=== PATIENT | male | born 1985 | race American Indian/Alaskan Native ===

== ENCOUNTER 2017-07-02 17:38 | Emergency (ER) | payer SELFPAY ==
[2017-07-02 18:25] VITALS: PULSE 89; RESP 20
--- NOTE | 2017-07-02 19:24 | C.PDOC ---
History Of Present Illness Ayse Duran is a 31 year old male, who presents to the emergency department complaining of numbness and tingling sensation in his upper and lower extremities since last night. Patient reports he went out drinking with his friends when he began to develop these symptoms. Patient complaints of gait changes, palpitations, and dizziness with movement. He also notes feeling jittery and never experiencing this before. Patient denies chest pain, shortness of breath, headache, fever, chills, cough, nausea, vomiting, diarrhea , abdominal pain, or other complaints. Time Seen by Provider: 07/02/17 19:06 Chief Complaint (Nursing): Chest Pain History Per: Patient History/Exam Limitations: no limitations Onset/Duration Of Symptoms: Hrs (24) Current Symptoms Are (Timing): Still Present Associated Symptoms: denies: Nausea Modifying Factors: None Exacerbating Factors: Movement (dizziness becomes worse) Alleviating Factors: None Recent travel outside of the [place]: No Past Medical History Reviewed: Historical Data, Nursing Documentation, Vital Signs Vital Signs: Last Vital Signs Temp 98.0 F 07/02/17 18:24 Pulse 89 07/02/17 18:24 Resp 20 07/02/17 18:24 BP 142/85 07/02/17 18:24 Pulse Ox 97 07/02/17 19:30 Family History: States: Unknown Family Hx - Social History Hx Tobacco Use: No Hx Alcohol Use: Yes Hx Substance Use: No - Immunization History Hx Tetanus Toxoid Vaccination: Yes Hx Influenza Vaccination: No Hx Pneumococcal Vaccination: No Review Of Systems Constitutional: Negative for: Fever, Chills Cardiovascular: Positive for: Palpitations. Negative for: Chest Pain Respiratory: Negative for: Cough, Shortness of Breath Gastrointestinal: Negative for: Nausea, Vomiting, Abdominal Pain Genitourinary: Negative for: Dysuria, Frequency Skin: Negative for: Rash Neurological: Positive for: Numbness (numbness and tingling in bilateral arms and legs), Dizziness, Other (gait changes ). Negative for: Change in Speech Psych: Negative for: Anxiety Physical Exam - Physical Exam Appears: Well, Non-toxic, No Acute Distress, Other (anxious) Skin: Normal Color, Warm, Dry Head: Atraumatic, Normacephalic Eye(s): bilateral: Normal Inspection, PERRL, EOMI Neck: Normal ROM Chest: No Deformity, No Tenderness Cardiovascular: Rhythm Regular, No Murmur Respiratory: Normal Breath Sounds Gastrointestinal/Abdominal: Normal Exam, Bowel Sounds (normal ), Soft, No Tenderness, No Distention, No Guarding, No Rebound Extremity: Normal ROM, No Pedal Edema, Capillary Refill (<2 seconds), No Swelling, Other (appears tense ) Extremity: Bilateral: Atraumatic, Normal Color And Temperature, Normal ROM Neurological/Psych: Oriented x3, Normal Speech, Normal Cognition, Normal Sensation ED Course And Treatment - Laboratory Results Result Diagrams: 07/02/17 20:45 07/02/17 20:45 Lab Interpretation: No Acute Changes (but UDS + amphetamines) O2 Sat by Pulse Oximetry: 97 (room air) Pulse Ox Interpretation: Normal Reevaluation Time: 22:37 Reassessment Condition: Improved Medical Decision Making Medical Decision Making: Impression: 31 y/o male with unremarkable physical exam, who appears anxious c/o gait changes due to numbness and tingling sensation in bilateral upper and lower extremities. Plan: -- EKG -- Labs -- Urinalysis -- Reassess and disposition Disposition Counseled Patient/Family Regarding: Studies Performed, Diagnosis, Need For Followup - Disposition Referrals: [facility] [Outside] Disposition: HOME/ ROUTINE Disposition Time: 22:38 Condition: STABLE Forms: [facility] (Mosotho), General Discharge Instructions - Clinical Impression Clinical Impression: Amphetamine adverse reaction - Scribe Statement The provider has reviewed the documentation as recorded by the Scribe Scribe Attestation: Codie Soto MD Scribe Attestation: All medical record entries made by the Scribe were at my direction and personally dictated by me. I have reviewed the chart and agree that the record accurately reflects my personal performance of the history, physical exam, medical decision making, and the department course for this patient. I have also personally directed, reviewed, and agree with the discharge instructions and disposition.
[2017-07-02 20:51] LABS: BASO # 0.1 K/uL (0.0-0.2); BASO % 0.6 % (0.0-2.0); EOS # 0.2 K/uL (0.0-0.7); EOS % 2.6 % (0.0-4.0); HEMOGLOBIN 16.3 g/dL (12.0-18.0); LYMPH # 3.2 K/uL (1.0-4.3); LYMPH % 41.2 % (20.0-40.0); MEAN CELL VOLUME 91.6 fL (80.0-94.0); MEAN CORPUSCULAR HEMOGLOBIN 31.6 pg (27.0-31.0); MEAN CORPUSCULAR HGB CONC 34.5 g/dL (33.0-37.0); MEAN PLATELET VOLUME 8.4 fL (7.2-11.7); MONO # 0.7 K/uL (0.0-0.8); MONO % 9.1 % (0.0-10.0); NEUT # 3.6 K/uL (1.8-7.0); NEUT % 46.5 % (50.0-75.0); NRBC % 0.1 % (0.0-2.0); RBC 5.17 Mil/uL (4.40-5.90); RED CELL DISTRIBUTION WIDTH 12.5 % (11.5-14.5); WHITE BLOOD COUNT 7.8 K/uL (4.8-10.8)
[2017-07-02 21:03] LABS: URINE AMORPHOUS SEDIMENT MODERATE /ul (<OCC); URINE BILIRUBIN NEGATIVE (NEGATIVE); URINE BLOOD NEGATIVE (NEGATIVE); URINE CLARITY Hazy (Clear); URINE COLOR Yellow (YELLOW); URINE GLUCOSE (UA) NORMAL (Normal); URINE LEUKOCYTE ESTERASE NEG Leu/uL (Negative); URINE NITRATE NEGATIVE (NEGATIVE); URINE PROTEIN NEGATIVE (NEGATIVE); URINE UROBILINOGEN NORMAL mg/dL (0.2-1.0)
[2017-07-02 21:04] LABS: CALCIUM 9.7 mg/dl (8.6-10.4); GFR AFRICAN-AMERICAN > 60; GFR NON-AFRICAN AMERICAN > 60
[2017-07-02 21:05] LABS: ALB/GLOB RATIO 1.1 (1.0-2.1); ALBUMIN 4.9 g/dL (3.5-5.0); ALT/SGPT 9 U/L (21-72); AST/SGOT 66 U/L (17-59); BLOOD UREA NITROGEN 7 mg/dL (9-20)
[2017-07-02] MEDS ORDERED: Sodium Chloride 0.9% 1,000 ML IV ONE (21:07)
[2017-07-02 21:33] LABS: BARBITURATES, UR NEGATIVE (NEGATIVE); BENZODIAZEPINES, UR NEGATIVE (NEGATIVE); OPIATES, UR NEGATIVE (NEGATIVE); PHENCYCLIDINE, UR NEGATIVE (NEGATIVE)
[2017-07-02 23:21] VITALS: BP 120/85; TEMP 98.7; O2SAT 99
== END 2017-07-02 22:46 | disposition home or self-care (01) ==
LOC: C.ER 17:38
DX: R20.0 Anesthesia of skin (principal); R00.2 Palpitations; R42 Dizziness and giddiness; T43.625A Adverse effect of amphetamines, initial encounter
CPT/HCPCS: 36415; 80053; 81001; 82550; 83735; 84484; 85025; 99284; G0480

== ENCOUNTER 2017-12-24 07:26 | Emergency (ER) | payer MEDICAID ==
[2017-12-24 07:43] VITALS: BP 114/77; PULSE 68; RESP 16; TEMP 98.5; O2SAT 99
[2017-12-24] MEDS ORDERED: Tdap Vaccine 0.5 ml Vial (10-64 yrs) IM ONE ×2 (07:50→07:59)
[2017-12-24] MEDS ORDERED: Bacitracin 500 Units/gm Oint Foilpak UD ONE (07:54)
[2017-12-24] MEDS ORDERED: Lidocaine 2% MPF (5 ml) Inj ONE (07:54)
[2017-12-24] MEDS ORDERED: LIDOCAINE 2% PF (2ML) INJ STA (08:01)
[2017-12-24] MEDS ORDERED: Bacitracin 500 Units/gm Oint Foilpak UD TOP ONE (08:03)
--- NOTE | 2017-12-24 08:26 | C.PDOC ---
History Of Present Illness 32 year old male presents to ED for evaluation of right forearm laceration sustained after hitting a window this morning. Patient states he struck the window after seeing rat near the area which broke the window glass. Denies change in sensation, or any other complaints at this time. He is not up to date with tetanus vaccination. Time Seen by Provider: 12/24/17 07:27 Chief Complaint (Nursing): Abnormal Skin Integrity History Per: Patient History/Exam Limitations: no limitations Onset/Duration Of Symptoms: Hrs Current Symptoms Are (Timing): Still Present Location Of Injury: Right: Forearm Recent travel outside of the [place]: No Additional History Per: Patient Past Medical History Reviewed: Historical Data, Nursing Documentation, Vital Signs Vital Signs: Last Vital Signs Temp 98.5 F 12/24/17 07:37 Pulse 68 12/24/17 07:37 Resp 16 12/24/17 07:37 BP 114/77 12/24/17 07:37 Pulse Ox 99 12/24/17 10:05 - Medical History PMH: No Chronic Diseases Surgical History: No Surg Hx Family History: States: Unknown Family Hx - Social History Hx Tobacco Use: No Hx Alcohol Use: Yes Hx Substance Use: No - Immunization History Hx Tetanus Toxoid Vaccination: Yes Hx Influenza Vaccination: No Hx Pneumococcal Vaccination: No Review Of Systems Constitutional: Negative for: Fever, Chills Skin: Positive for: Other (laceration to right forearm) Neurological: Negative for: Weakness, Numbness Physical Exam - Physical Exam Appears: Non-toxic, No Acute Distress Skin: Warm, Dry, Other (2.5cm irregular curved laceration to right mid forearm; no laceration to right hand, no active bleeding) Head: Atraumatic, Normacephalic Eye(s): bilateral: Normal Inspection Oral Mucosa: Moist Chest: Symmetrical Extremity: Normal ROM, No Tenderness (no tenderness to right hand), Capillary Refill (less than 2 seconds), No Deformity, No Swelling (no right hand swelling) Pulses: Left Radial: Normal, Right Radial: Normal Neurological/Psych: Oriented x3, Normal Speech, Normal Motor, Normal Sensation ED Course And Treatment O2 Sat by Pulse Oximetry: 99 (RA) Pulse Ox Interpretation: Normal - Other Rad Right forearm X-Ray: Interpreted by Me, Viewed By Me Interpretation: No acute fracture or dislocation. (+) Foreign body Laceration - Laceration Repair right forearm Wound Length (In cm): 2.5 Description Of Wound: Irregular Wound Cleansed With: Sterile Saline Anesthesia: Lidocaine 1% Wound Examination: Irrigated With Saline, Foreign Material Removed Manually Wound Closure: Suture (3) Suture Technique And Material Used: Interrupted, Nylon (4-0) Wound Complexity: Simple Medical Decision Making Medical Decision Making: Patient with laceration to forearm with broken glass. Tetanus vaccination administered. Xray ordered to rule out foreign body. Xray viewed by me and shows foreign body in laceration. No fractures. Laceration repair performed by me and foreign body removed, see procedure note. Patient tolerated procedure well, no immediate complications. Bacitracin and dressing applied. Patient instructed on wound care and to return for suture removal in 10 days. Disposition - Disposition Referrals: [facility] [Outside] Disposition: HOME/ ROUTINE Disposition Time: 08:24 Condition: STABLE Additional Instructions: Keep area clean and dry. May wash gently with soap and water.Change dressing 1- 2 times daily. Return to ER if fever occurs, redness or swelling around wound, pus in the wound. Please follow up with your primary doctor, clinic, or urgent care for suture removal in 10 days Prescriptions: Cephalexin [cephalexin] 500 mg PO Q12 #14 cap Instructions: Laceration Repair With Stitches (DC) Forms: [employer] (Jordanian) - POA Present On Arrival: None - Clinical Impression Clinical Impression: Forearm laceration - PA / [employer]DEL [employer] P[employer]ER / Resident Statement MD/DO has reviewed & agrees with the documentation as recorded. - Scribe Statement The provider has reviewed the documentation as recorded by the Scribe KP All medical record entries made by the Scribe were at my direction and personally dictated by me. I have reviewed the chart and agree that the record accurately reflects my personal performance of the history, physical exam, medical decision making, and the department course for this patient. I have also personally directed, reviewed, and agree with the discharge instructions and disposition.
--- NOTE | 2017-12-24 09:49 | RAD ---
PROCEDURE: Radiographs of the Right Forearm HISTORY: LACERATION FB GLASS COMPARISON: None available. TECHNIQUE: Frontal and lateral views obtained. FINDINGS: BONES: No fracture or destructive lesion. JOINT SPACES: Unremarkable. OTHER FINDINGS: 2 mm sq radiodensity imbedded within the subdermal subcutaneous soft tissue at the volar mid forearm. Limited laceration may be present here with trace emphysematous changes related. IMPRESSION: No acute fracture dislocation right forearm. Tiny retained radiodense foreign body noted in the mid forearm superficial volar soft tissues as discussed above.
== END 2017-12-24 08:53 | disposition home or self-care (01) ==
LOC: C.ER 07:26
DX: S51.811A Laceration without foreign body of right forearm, initial encounter (principal); W22.09XA Striking against other stationary object, initial encounter; Y92.9 Unspecified place or not applicable; Z23 Encounter for immunization

== ENCOUNTER 2018-08-26 22:56 | Emergency (ER) | payer MEDICAID ==
[2018-08-26 23:20] VITALS: BP 107/71; PULSE 72; RESP 22; TEMP 98.2; O2SAT 100
--- NOTE | 2018-08-27 00:16 | C.PDOC ---
History Of Present Illness 32-year-old male presents to the ED for evaluation of left-sided lower back pain that has been radiating down his left leg for two days. Patient states he has taken a couple doses of Motrin without significant relief. Patient reports his symptoms are exacerbated with squatting down. Patient denies fever, chills, chest pain, shortness of breath, abdominal pain, or changes in urination. Time Seen by Provider: 08/26/18 23:23 Chief Complaint (Nursing): Back Pain History Per: Patient History/Exam Limitations: no limitations Onset/Duration Of Symptoms: Days (2) Current Symptoms Are (Timing): Still Present Quality Of Discomfort: "Pain" Additional History Per: Patient Past Medical History Reviewed: Historical Data, Nursing Documentation, Vital Signs Vital Signs: Last Vital Signs Temp 98.2 F 08/26/18 23:10 Pulse 72 08/26/18 23:10 Resp 22 08/26/18 23:10 BP 107/71 08/26/18 23:10 Pulse Ox 100 08/26/18 23:10 - Medical History PMH: No Chronic Diseases Surgical History: No Surg Hx Family History: States: Unknown Family Hx - Social History Hx Tobacco Use: No Hx Alcohol Use: Yes Hx Substance Use: No - Immunization History Hx Tetanus Toxoid Vaccination: Yes Hx Influenza Vaccination: No Hx Pneumococcal Vaccination: No Review Of Systems Constitutional: Negative for: Fever, Chills, Weakness Cardiovascular: Negative for: Chest Pain Gastrointestinal: Negative for: Nausea, Vomiting, Abdominal Pain, Diarrhea Genitourinary: Negative for: Dysuria, Hematuria Musculoskeletal: Positive for: Back Pain (left-sided, lower ), Leg Pain (left ) Skin: Negative for: Rash Neurological: Negative for: Weakness, Numbness, Dizziness Physical Exam - Physical Exam Appears: Well, Non-toxic, No Acute Distress Skin: Normal Color, Warm, No Rash Neck: Normal ROM, Supple Chest: Symmetrical Respiratory: No Accessory Muscle Use, Other (normal inspiratory effort ) Gastrointestinal/Abdominal: Soft, No Distention Back: Straight Leg Raising (left leg ), Other (ambulating at steady upright gait ) Extremity: No Normal ROM (intact, but limited secondary to pain with bending down 80 degrees ), Tenderness (to sacral region, radiating into left buttock ) Extremity: Bilateral: Atraumatic Neurological/Psych: Oriented x3, Normal Cranial Nerves (grossly intact ) ED Course And Treatment O2 Sat by Pulse Oximetry: 100 (on RA) Pulse Ox Interpretation: Normal Medical Decision Making Medical Decision Making: Will treat for lower back pain/ sciatica. Flexeril PO and Toradol IM given. 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 - Scribe Statement The provider has reviewed the documentation as recorded by the Scribe (Annie Mcgowan) All medical record entries made by the Scribe were at my direction and personally dictated by me. I have reviewed the chart and agree that the record accurately reflects my personal performance of the history, physical exam, medical decision making, and the department course for this patient. I have also personally directed, reviewed, and agree with the discharge instructions and disposition.
== END 2018-08-27 00:20 | disposition home or self-care (01) ==
LOC: C.ER 22:56
DX: M54.40 Lumbago with sciatica, unspecified side (principal)
CPT/HCPCS: 96372; 99283; J1885